=== PATIENT | female | born 1970 | race Caucasian/White ===

== ENCOUNTER 2016-12-31 19:55 | Inpatient (IN) | payer MEDICAID ==
[~2016-12-31] VITALS: Ht 157.5 cm; Wt 80.3 kg
[2016-12-31 20:06] VITALS: BP 147/87; PULSE 103; RESP 18; TEMP 98.2; O2SAT 98
--- NOTE | 2016-12-31 20:30 | NUR ---
Placed in room 01 . Placed on classroom monitor, blood pressure machine and pulse oximeter. To gown for exam. Side rails up. Report given to NURIA Gonzalez.
--- NOTE | 2016-12-31 20:34 | NUR ---
ER at bedside examining patient.
[2016-12-31 20:38] LABS: BILIRUBIN,URINE 2+ (NEGATIVE); BLOOD, URINE 3+ (NEGATIVE); CLARITY/URINE HAZY (CLEAR); COLOR,URINE AMBER (YELLOW); GLUCOSE,URINE NEGATIVE (NEGATIVE); KETONES,URINE 1+ (NEGATIVE); LEUKOCYTE ESTERASE ,URINE NEGATIVE (NEGATIVE); NITRITE, URINE NEGATIVE (NEGATIVE); PROTEIN URINE 2+ (NEGATIVE); UROBILINOGEN,URINE 0.2 (0.2-1.0)
--- NOTE | 2016-12-31 20:39 | NUR ---
Pt. presented to ED with c/o right upper quadrant abd pain 04/09 that radiates to her back. Pt. stated that she recently went AMA from [facility] after being told she has pancreatitis. Pt. stated "Someone was spying on me there, so I had to leave".
[2016-12-31] MEDS ORDERED: NACL 0.9% 1,000 ML IV ONE (20:44)
[2016-12-31] MEDS ORDERED: ONDANSETRON HCL 4 MG/2 ML VIAL IVP ONE (20:45)
[2016-12-31] MEDS ORDERED: HYDROmorphone 1 MG INJ. 1 MG/ML AMPUL IVP ONE (20:45)
[2016-12-31] MEDS ORDERED: DIPHENHYDRAMINE INJ 50 MG/ML VIAL IVP ONE (20:45)
--- NOTE | 2016-12-31 20:46 | NUR ---
# 20 gauge angiocath placed to Right AC. Use of asceptic technique. Opsite placed over site. Blood return noted. Blood for lab drawn from site. Flushed with 10 cc of normal saline. No evidence of infiltration noted. Patient tolerated well.
[2016-12-31 20:51] LABS: BACTERIA,URINE FEW /HPF (None Seen); RBC,URINE 20-50 /HPF (0-3)
[2016-12-31 20:52] LABS: MUCUS,URINE 2+ /LPF (None Seen)
[2016-12-31 21:08] LABS: BASOPHILS # (AUTO) 0.1 K/uL (0.0-0.2); EOSINOPHILS # (AUTO) 0.2 K/uL (0.0-0.4); HEMOGLOBIN 13.9 g/dL (12.0-16.0); RED CELL DISTRIBUTION WIDTH 13.2 % (9.0-15.0)
[2016-12-31 21:17] LABS: EOSINOPHILS % (AUTO) 1.8 % (0.0-4.0); HEMATOCRIT 40.7 % (36-48); LYMPHOCYTES % (AUTO) 22.3 % (20.5-51.5); MEAN CORPUSCULAR HEMOGLOBIN 36 pg (27-31); MEAN CORPUSCULAR HGB CONC 34 % (32-36); MEAN CORPUSCULAR VOLUME 105 fL (79.0-98.0); MONOCYTES # (AUTO) 0.7 K/uL (0.0-1.0); MONOCYTES % (AUTO) 7.1 % (1.7-9.3); NEUTROPHILS # (AUTO) 6.2 K/uL (1.8-7.7); NEUTROPHILS % (AUTO) 67.8 % (40.0-70.0); PLATELET COUNT (AUTO) 194 K/uL (130-430); RED BLOOD CELL COUNT(AUTO) 3.89 MIL/uL (4.2-6.2); WHITE BLOOD COUNT (AUTO) 9.2 K/uL (4.8-10.8)
[2016-12-31 21:22] LABS: INR 0.9 (0.8-1.2); PROTHROMBIN TIME 10.3 SECS (9.5-12.5)
[2016-12-31 21:23] LABS: CALCIUM 8.9 mg/dL (8.4-11.0); CREATININE 0.85 mg/dL (0.55-1.30)
[2016-12-31 21:28] LABS: POTASSIUM 2.8 mmol/L (3.5-5.1)
[2016-12-31 21:30] LABS: ALBUMIN 3.7 g/dL (3.4-4.8); TOTAL BILIRUBIN 1.1 mg/dL (0.0-1.0); TOTAL PROTEIN, SERUM 8.1 g/dL (6.4-8.3)
[2016-12-31] MEDS ORDERED: KCL 20 mEq in 100 mL (PREMIX) 100 ML IV ONE (21:30)
[2016-12-31] MEDS ORDERED: PANTOPRAZOLE SODIUM 40 MG/VIAL (PROTONIX) IVP ONE (21:30)
[2016-12-31] MEDS ORDERED: POTASSIUM CHLORIDE 20 MEQ TAB.PRT.SR PO ONE (21:30)
[2016-12-31] MEDS ORDERED: LISINOPRIL PO (23:02)
[2016-12-31] MEDS ORDERED: ATENOLOL PO (23:02)
[2016-12-31 23:24] LABS: BARBITURATE, URINE NEGATIVE (NEG <=200); BENZODIAZEPINE, URINE POSITIVE (NEG <=150); CANNABINOID, URINE NEGATIVE (NEG <=50); COCAINE, URINE NEGATIVE (NEG <=150); METHAMPHETAMINES SCREEN,URINE NEGATIVE (NEG <=500); OPIATE, URINE POSITIVE (NEG <=100); PHENCYCLIDINE SCREEN,URINE NEGATIVE (NEG <=25); URINE AMPHETAMINE NEGATIVE (NEG <=500); URINE METHADONE NEGATIVE (NEG <=200); URINE OXYCODONE SCREEN NEGATIVE (NEG <=100); URINE PROPOXYPHENE SCREEN NEGATIVE (NEG <=300)
[2016-12-31 23:25] LABS: UR TRICYCLIC ANTIDEPRESSANTS NEGATIVE (NEG <=300)
[2017-01-01] VITALS (8 sets, daily range): BP systolic 139–162; BP diastolic 83–110; PULSE 79–105; RESP 16–19; TEMP 96.9–98.6; O2SAT 92–97
--- NOTE | 2017-01-01 00:05 | NUR ---
ADMISSION NOTES; -Pt arrived from ER dept via a gurney to room 102-B assisting by Fantasma. Eva acute pancreatitis under Riley Yip. Pt is able to transfer from a gurney to bed safely with steady gaits. Pt denies any pain n&V,chest pain,sob,or any acute distress. Vital signs stable 97.4, 10, 104, 90, 151/99,b0aco=95% r/a. Places a telemetry box shows sinus tachycardia. Skin intact. Awais pedis pulses normal and present, no edema noted. Pt stated,''I always have a loose bowel movement every time she pees.'' Abdomen soft & distended, BS present. IV site of rt a/c #20, patent, no s/s any infiltration after flushed w/ NS,valente cdi. Discussed poc, all safety measures, pain mgmt to use call light to inform nurse, pt verbalized understanding. Fall precaution in place. Call light w/in reach. Continue to monitor pt. Addendum: 01/01/17 at 0137 by Ace Sands RN CORRECTION-ADMISSION NOTES TIME IS AT 0048, NOT AT 0005.
--- NOTE | 2017-01-01 00:45 | NUR ---
Pt. transfered to [facility] as per ACLS protocol. Pt. stable for transfer at this time.
--- NOTE | 2017-01-01 00:48 | NUR ---
ADMISSION NOTES; -Pt arrived from ER dept via a gurney to room 102-B assisting by Poli-EMT. Dx acute pancreatitis under Riley Yip. Pt is able to transfer from a gurney to bed safely with steady gaits. Pt denies any pain n&V,chest pain,sob,or any acute distress. Vital signs stable 97.4, 10, 104, 90, 151/99,v6lxc=66% r/a. Places a telemetry box shows sinus tachycardia. Skin intact. Awais pedis pulses normal and present, no edema noted. Pt stated,''I always have a loose bowel movement every time she pees.'' Abdomen soft & distended, BS present. IV site of rt a/c #20, patent, no s/s any infiltration after flushed w/ NS,valente cdi. Discussed poc, all safety measures, pain mgmt to use call light to inform nurse, pt verbalized understanding. Fall precaution in place. Call light w/in reach. Continue to monitor pt.
--- NOTE | 2017-01-01 00:48 | NUR ---
ADMISSION NOTE Received patient from ER via charles, received report from Carlos QUIÑONES. Patient admitted with diagnosis of acute pancreatitis. Patient oriented to hospital routine, call light, toileting and safety-patient verbalized understanding.
--- NOTE | 2017-01-01 00:51 | NUR ---
Bedside report given to receiving RN Renuka.
--- NOTE | 2017-01-01 00:56 | NUR ---
CONSULTATION PAGED REASON FOR CONSULTATION:ACUTE PANCREATITIS WAS CONSULT CALLED?Y PERSON WHO WAS NOTIFIED:[facility] CONSULTING PHYSICIAN:ELIZABETH LOPES ([facility] INTENSIVE CARE NURSE) DISTRICT COURT ADMINISTRATOR SPECIALTY:GI DISTRICT [facility] ADMINISTRATOR PHONE NUMBER:[phone]
[2017-01-01] MEDS: KCL 20 mEq in NS 1000 mL 1,000 ML IV SCH ×4 (01:46→20:56)
[2017-01-01] MEDS: HYDROmorphone 1 MG INJ. 1 MG/ML AMPUL IVP PRN ×5 (01:55→20:45)
--- NOTE | 2017-01-01 01:55 | NUR ---
ROUNDS;PAIN MEDICATION ADMINISTERED -Pt is c/o sharp abdominal pain 9 out 10, gave Dilaudid 1mg IVP. See EMAR for pain reassessment. IV site of rt a/c #20, patent, no s/s any infiltration after flushed w/ NS,drsg cdi. Fall precaution in place. Call light w/in reach. Continue to monitor pt.
[2017-01-01] MEDS: ONDANSETRON HCL 4 MG/2 ML VIAL IVP PRN ×4 (02:01→20:48)
--- NOTE | 2017-01-01 02:01 | NUR ---
NAUSEA -Pt is c/o just nausea, gave Zofran 4mg IVP. Call light w/in reach. Continue to monitor pt.
--- NOTE | 2017-01-01 04:19 | NUR ---
ROUNDS; -Pt is resting. NO s/s any acute distress noted. IV site of rt a/c #20, patent, no s/s any infiltration after flushed w/ NS,drsg cdi. Fall precaution in place. Call light w/in reach. Continue to monitor pt.
--- NOTE | 2017-01-01 05:59 | NUR ---
ROUNDS;PAIN AND N/V MEDICATIONS ADMINISTERED -Pt is c/o sharp and throbbing abdominal pain 10 out 10, gave Dilaudid 1mg IVP and Zofran 4mg IVP. See EMAR for pain reassessment. IV site of rt a/c #20, patent, no s/s any infiltration after flushed w/ NS,drsg cdi. Fall precaution in place. Call light w/in reach. Continue to monitor pt.
[2017-01-01] MEDS ORDERED: ACETAMINOPHEN 325 MG TABLET PO PRN (07:15)
--- NOTE | 2017-01-01 07:18 | NUR ---
CLOSING NOTES; -Pt awakes, resting in bed. Pt denies any pain,N&V,or any acute distress. IV site of rt f/a patent, no s/s any infiltration noted. IVF NS + 20 MEQ KCL @ 125ml/hr. Fall precaution in place. Call light w/in reach. Endorsed to Pola to continue care.
--- NOTE | 2017-01-01 07:20 | NUR ---
INITIAL NOTE RECEIVED PATIENT FROM PLANE CAPTAIN NURSE, PATIENT IS RESTING IN BED, PATIENT IS ALERT AND ORIENTED X 4, ASSESSMENT COMPLETE, PATIENT STATED SHE IS NOT IN ANY PAIN, SHE STATED THAT THE PRN PAIN MEDICATION THAT WAS GIVEN THIS MORNING HELPED PAIN, PATIENT HAS A IV IN RIGHT FOREARM WITH IV FLUIDS RUNNING, NO SIGNS OF INFILTRATION NOTED, INSTRUCTED PATIENT TO USE CALL BERGER IF ASSISTANCE IS NEEDED, PATIENT VERBALIZED UNDERSTANDING, CALL BERGER LEFT NEXT TO PATIENT, BED IN LOWEST POSITION, TWO SIDE RAILS UP, FALL PRECAUTIONS IN PLACE, WILL CONTINUE TO MONITOR PATIENT.
[2017-01-01 07:44] LABS: BASOPHILS # (AUTO) 0.1 K/uL (0.0-0.2); BASOPHILS % (AUTO) 1.2 % (0.0-2.0); EOSINOPHILS # (AUTO) 0.1 K/uL (0.0-0.4); EOSINOPHILS % (AUTO) 1.8 % (0.0-4.0); HEMATOCRIT 33.4 % (36-48); HEMOGLOBIN 11.5 g/dL (12.0-16.0); LYMPHOCYTES # (AUTO) 2.6 K/uL (1.0-5.5); LYMPHOCYTES % (AUTO) 31.5 % (20.5-51.5); MEAN CORPUSCULAR HEMOGLOBIN 36 pg (27-31); MEAN CORPUSCULAR HGB CONC 34 % (32-36); MEAN CORPUSCULAR VOLUME 105 fL (79.0-98.0); MONOCYTES # (AUTO) 0.6 K/uL (0.0-1.0); MONOCYTES % (AUTO) 7.7 % (1.7-9.3); NEUTROPHILS # (AUTO) 4.8 K/uL (1.8-7.7); NEUTROPHILS % (AUTO) 57.8 % (40.0-70.0); PLATELET COUNT (AUTO) 154 K/uL (130-430); RED BLOOD CELL COUNT(AUTO) 3.18 MIL/uL (4.2-6.2); RED CELL DISTRIBUTION WIDTH 13.3 % (9.0-15.0); WHITE BLOOD COUNT (AUTO) 8.2 K/uL (4.8-10.8)
[2017-01-01] MEDS: PANTOPRAZOLE SODIUM 40 MG/VIAL (PROTONIX) IVP SCH (08:04)
--- NOTE | 2017-01-01 08:07 | NUR ---
MEDICATIONS PATIENT RECEIVED MORNING MEDICATION, REEDUCATED PATIENT ON REASON FOR MEDICATION, PATIENT VERBALIZED UNDERSTANDING, NO OTHER NEEDS AT THIS TIME, CALL BERGER LEFT WITHIN REACH OF PATIENT'S HAND, FALL PRECAUTIONS IN PLACE, WILL CONTINUE TO MONITOR.
[2017-01-01 08:17] LABS: ALBUMIN 3.1 g/dL (3.4-4.8); CALCIUM 7.8 mg/dL (8.4-11.0); CREATININE 0.57 mg/dL (0.55-1.30); TOTAL PROTEIN, SERUM 6.6 g/dL (6.4-8.3)
--- NOTE | 2017-01-01 09:25 | NUR ---
CALLED ATTENDING , DR NEAL, RE: LOW K LEVEL. SPOKE TO JOSE
--- NOTE | 2017-01-01 09:28 | NUR ---
RN ROUNDS PATIENT IS CURRENTLY RESTING IN BED, NO SIGNS OF DISTRESS, PATIENT HAS NO COMPLAINTS OF PAIN AT THIS TIME, WILL CONTINUE TO MONITOR PATIENT, FALL PRECAUTIONS PLACE.
[2017-01-01] MEDS ORDERED: POTASSIUM CHLORIDE 30 MEQ in NS 250 ML IV ONE (10:00)
[2017-01-01] MEDS ORDERED: POTASSIUM CHLORIDE 10 MEQ TAB.PRT.SR PO ONE (10:00)
[2017-01-01] MEDS ORDERED: ATENOLOL 25 MG TABLET(TENORMIN) PO ONE (10:30)
--- NOTE | 2017-01-01 11:22 | NUR ---
RN ROUNDS PATIENT IS CURRENTLY RESTING IN BED, NO COMPLAINTS OF PAIN OR DISCOMFORT AT THIS TIME, PRN MEDICATION THAT WAS GIVEN IS HELPING WITH ABDOMINAL PAIN, NO OTHER NEEDS AT THIS TIME, WILL CONTINUE TO MONITOR PATIENT, FALL PRECAUTIONS IN PLACE.
[2017-01-01] MEDS ORDERED: LEVO1TAB7 PO (13:12)
[2017-01-01] MEDS ORDERED: ATEN-41 PO (13:12)
[2017-01-01] MEDS ORDERED: LISI-600 PO (13:12)
--- NOTE | 2017-01-01 13:14 | NUR ---
RN ROUNDS PATIENT IS CURRENTLY SITTING UP IN BED, WATCHING TV, NO COMPLAINTS OF PAIN OR DISCOMFORT, FALL PRECAUTIONS IN PLACE, NO OTHER NEEDS AT THIS TIME WILL CONTINUE TO MONITOR
[2017-01-01] MEDS ORDERED: ETHINYL ESTRADIOL PO SCH (13:45)
[2017-01-01] MEDS ORDERED: cloNIDine HCL 0.1 MG TABLET PO PRN (13:45)
[2017-01-01] MEDS ORDERED: LISINOPRIL 20 MG TABLET PO ONE (13:45)
[2017-01-01] MEDS ORDERED: LEVONORGESTREL PO SCH (13:45)
--- NOTE | 2017-01-01 14:27 | NUR ---
RN ROUNDS PATIENT IS SITTING UP IN BED TALKING TO FAMILY MEMBER, BLOOD PRESSURE WAS CHECKED AND SCHEDULED MEDICATION WAS GIVEN, NO OTHER NEEDS AT THIS TIME, WILL CONTINUE TO MONITOR PATIENT, FALL PRECAUTIONS IN PLACE.
[2017-01-01] MEDS ORDERED: ETHINYL ESTRADIOL PO ONE (14:30)
[2017-01-01] MEDS ORDERED: LEVONORGESTREL PO ONE (14:30)
[2017-01-01] MEDS: chlordiazePOXIDE HCL 25 MG CAPSULE PO SCH ×2 (16:09→20:53)
--- NOTE | 2017-01-01 17:00 | NUR ---
RN ROUNDS PATIENT IS CURRENTLY RESTING IN BED WATCHING TV, NO OTHER NEEDS AT THIS TIME, FALL PRECAUTIONS IN PLACE, WILL CONTINUE TO MONITOR .
--- NOTE | 2017-01-01 18:31 | NUR ---
CLOSING NOTE PATIENT IS RESTING IN BED, NO SIGNS OF DISTRESS NOTED, ALL NEEDS MET, WILL ENDORSE PATIENT TO BUILDING SURVEYOR NURSE, CALL BERGER LEFT NEXT TO PATIENT'S HAND, BED IN LOWEST POSITION, TWO SIDE RAILS UP, FALL PRECAUTIONS IN PLACE
--- NOTE | 2017-01-01 19:20 | NUR ---
initial nursing notes: Patient awake in bed. Patient has IV fluid infusing on the right AC IV access. Patient denies of having pain.
--- NOTE | 2017-01-01 19:52 | NUR ---
PT TRANSFERRED Report given to [facility] by NURIA Norman at 1730. Transfer packet with Transfer Orders and Medication Reconciliation form given to LÁZARO Alonso with report by NURIA Norman. Exitcare provided. [facility] ID band removed, replaced with ID band with pt's name and . Patient has a LUE PICC line double lumen which are intact. Latest blood sugar result, 103. All belongings sent with patient. Patient left floor via gurney escorted by EMT in no distress. Addendum: 01/02/17 at 6469 by Aris Negrete RN Note was accidentally entered in error.
--- NOTE | 2017-01-01 21:20 | NUR ---
nursing rounds: Patient stated that the pain medication was effective in treating her back ache.
--- NOTE | 2017-01-01 22:27 | NUR ---
PAGED PAGED AUGUSTINE MALHOTRA AT [phone] SPOKE WITH JESSICA.
--- NOTE | 2017-01-01 23:20 | NUR ---
nursing rounds: Patient requested for heating pad for her back ache, Dr. Ojeda was notified. made a telephone order to go ahead and apply heating pad to patient's affected area.
[2017-01-02] VITALS (7 sets, daily range): BP systolic 108–157; BP diastolic 64–107; PULSE 69–91; RESP 16–18; TEMP 97–98.1; O2SAT 94–98
--- NOTE | 2017-01-02 01:20 | NUR ---
nursing rounds: Patient asleep in bed. Patient has no shortness of breath.
--- NOTE | 2017-01-02 03:20 | NUR ---
nursing rounds: Patient sleeping in bed. Patient's breathing pattern is regular and unlabored.
--- NOTE | 2017-01-02 05:20 | NUR ---
nursing rounds: Patient calmly resting in bed. Call light within patient's reach.
[2017-01-02] MEDS: KCL 20 mEq in NS 1000 mL 1,000 ML IV SCH ×2 (07:00→11:44)
[2017-01-02 07:30] LABS: ALBUMIN 2.5 g/dL (3.4-4.8); BILIRUBIN,DIRECT 0.4 mg/dL (0.0-0.3); POTASSIUM 3.1 mmol/L (3.5-5.1); TOTAL BILIRUBIN 4.2 mg/dL (0.0-1.0)
--- NOTE | 2017-01-02 07:44 | NUR ---
closing nursing notes: Patient is awake, alert and oriented X 4. Patient is in no acute respiratory distress. No episodes of fall and no injuries throughout the automatic lathe setter. Provided nursing report to incoming morning shift nurse, Mary Shah RN, at patient's bedside.
--- NOTE | 2017-01-02 08:00 | NUR ---
AM NOTES IN BED AWAKE, ALERT AND ORIENTED. AMBULATE TO THE BATHROOM WITH STEADY GAIT. IVF INFUSING WELL. ON CLEAR LIQUID DIET. DENIES ANY N/V. COMPLAIN OF MLD PAIN ON HER BACK. CALL LIGHT I REACH. ENC. TO CALL FOR HELP NEEDED. WILL MONITOR.
[2017-01-02] MEDS: HYDROmorphone 1 MG INJ. 1 MG/ML AMPUL IVP PRN ×4 (08:58→21:56)
[2017-01-02] MEDS ORDERED: ATENOLOL 25 MG TABLET(TENORMIN) PO SCH (09:00)
[2017-01-02] MEDS: LISINOPRIL 20 MG TABLET PO SCH (09:02)
[2017-01-02] MEDS: chlordiazePOXIDE HCL 25 MG CAPSULE PO SCH ×3 (09:03→20:40)
[2017-01-02] MEDS: ATENOLOL 25 MG TABLET(TENORMIN) PO SCH (09:03)
[2017-01-02] MEDS: PANTOPRAZOLE SODIUM 40 MG/VIAL (PROTONIX) IVP SCH (09:03)
[2017-01-02] MEDS: LEVONORGESTREL PO SCH (09:04)
[2017-01-02] MEDS: ETHINYL ESTRADIOL PO SCH (09:04)
[2017-01-02 09:07] LABS: CALCIUM 7.7 mg/dL (8.4-11.0); CREATININE 0.56 mg/dL (0.55-1.30)
[2017-01-02 09:08] LABS: TOTAL PROTEIN, SERUM 6.5 g/dL (6.4-8.3)
--- NOTE | 2017-01-02 10:00 | NUR ---
ROUNDS RESTING IN BED, PAIN BETTER. NO DISTRESS NOTED. WILL MONITOR.
--- NOTE | 2017-01-02 10:27 | NUR ---
CALLED DR. NEAL RE: K RESULTS.
[2017-01-02] MEDS ORDERED: KCL IV ONE (11:00)
[2017-01-02] MEDS ORDERED: LIDOCAINE JECT IV ONE (11:00)
[2017-01-02] MEDS ORDERED: NS IV ONE (11:00)
[2017-01-02] MEDS ORDERED: POTASSIUM CHLORIDE 40 MEQ, LIDOCAINE JECT 2% PF 100 MG 75 MG in NS 250 ML IV ONE (12:30)
--- NOTE | 2017-01-02 12:30 | NUR ---
NOTES RESTING IN BED, NO COMPLAINTS. STABLE
[2017-01-02] MEDS ORDERED: POTASSIUM CHLORIDE 20 MEQ/PKT PACKET PO ONE (13:30)
--- NOTE | 2017-01-02 18:20 | NUR ---
NOTES IN BED AWAKE, PAIN BETTER. TOLERATING FULL LIQUID. K DARREN STILL INFUSING. NO DISTRESS NOTED. SEEN BY DR. ABERNATHY AND DR. NEAL. ALL NEEDS MEET. WILL ENDORSE
--- NOTE | 2017-01-02 19:20 | NUR ---
initial nursing notes: Patient awake in bed. Patient watching television. Patient has IV fluid infusing on the right AC IV access. Patient denies of having pain.
--- NOTE | 2017-01-02 21:20 | NUR ---
nursing rounds: Patient is ambulatory to the bathroom with a steady gait.
--- NOTE | 2017-01-02 22:30 | NUR ---
nursing rounds: Patient stated that the pain medication was effective in treating her back pain.
--- NOTE | 2017-01-03 00:30 | NUR ---
nursing rounds: Patient asleep in bed. Patient has no shortness of breath.
--- NOTE | 2017-01-03 02:30 | NUR ---
nursing rounds: Patient sleeping in bed. Patient's breathing pattern is regular and unlabored.
[2017-01-03] MEDS: HYDROmorphone 1 MG INJ. 1 MG/ML AMPUL IM PRN ×2 (03:46→08:32)
[2017-01-03] MEDS: KCL 20 mEq in NS 1000 mL 1,000 ML IV SCH ×2 (03:46→12:28)
[2017-01-03 04:08] VITALS: BP 147/89; PULSE 81; RESP 17; TEMP 97.2; O2SAT 97
--- NOTE | 2017-01-03 04:30 | NUR ---
nursing rounds: Patient received another dose of pain medication. Patient stated that the pain medication was effective.
--- NOTE | 2017-01-03 06:05 | NUR ---
nursing rounds: Patient calmly resting in bed. Call light within patient's reach.
[2017-01-03 07:30] LABS: BASOPHILS % (AUTO) 0.8 % (0.0-2.0); EOSINOPHILS # (AUTO) 0.1 K/uL (0.0-0.4); EOSINOPHILS % (AUTO) 2.4 % (0.0-4.0); HEMATOCRIT 33.5 % (36-48); HEMOGLOBIN 11.6 g/dL (12.0-16.0); LYMPHOCYTES % (AUTO) 34.1 % (20.5-51.5); MEAN CORPUSCULAR HEMOGLOBIN 36 pg (27-31); MEAN CORPUSCULAR HGB CONC 35 % (32-36); MEAN CORPUSCULAR VOLUME 106 fL (79.0-98.0); MONOCYTES # (AUTO) 0.6 K/uL (0.0-1.0); MONOCYTES % (AUTO) 10.1 % (1.7-9.3); NEUTROPHILS # (AUTO) 3.2 K/uL (1.8-7.7); NEUTROPHILS % (AUTO) 52.6 % (40.0-70.0); PLATELET COUNT (AUTO) 179 K/uL (130-430); RED BLOOD CELL COUNT(AUTO) 3.17 MIL/uL (4.2-6.2); RED CELL DISTRIBUTION WIDTH 12.6 % (9.0-15.0); WHITE BLOOD COUNT (AUTO) 5.9 K/uL (4.8-10.8)
--- NOTE | 2017-01-03 07:30 | NUR ---
INITIAL NOTE RECEIVED PATIENT FROM PICKLING TANK OPERATOR NURSE, PATIENT IS CURRENTLY RESTING IN BED, ASSESSMENT COMPLETE, PATIENT IS ALERT AND ORIENTED X 4, NO SIGNS OF DISTRESS NOTED, PATIENT HAS A IV ON RIGHT FOREARM WITH FLUIDS INFUSING, INSTRUCTED PATIENT ON USE OF CALL BERGER, PATIENT VERBALIZED UNDERSTANDING, CALL BERGER LEFT NEXT TO PATIENT, BED IN LOWEST POSITION, SIDE RAILS UP, FALL PRECAUTIONS IN PLACE, WILL CONTINUE TO MONITOR PATIENT.
--- NOTE | 2017-01-03 07:33 | NUR ---
closing nursing notes: Patient is awake, alert and oriented X 4. Patient is in no acute respiratory distress. No episodes of fall and no injuries throughout the night clerk auditor. Provided nursing report to incoming morning shift nurse, NURIA Escalona, at patient's bedside.
[2017-01-03 08:00] VITALS: BP 157/110; PULSE 79; RESP 18; TEMP 97.3; O2SAT 94
[2017-01-03 08:18] LABS: ALBUMIN 2.8 g/dL (3.4-4.8); BILIRUBIN,DIRECT 0.3 mg/dL (0.0-0.3); CALCIUM 8.2 mg/dL (8.4-11.0); CREATININE 0.63 mg/dL (0.55-1.30); POTASSIUM 3.5 mmol/L (3.5-5.1); TOTAL BILIRUBIN 0.6 mg/dL (0.0-1.0); TOTAL PROTEIN, SERUM 6.4 g/dL (6.4-8.3)
[2017-01-03] MEDS: PANTOPRAZOLE SODIUM 40 MG/VIAL (PROTONIX) IVP SCH (08:29)
[2017-01-03] MEDS: chlordiazePOXIDE HCL 25 MG CAPSULE PO SCH (08:29)
[2017-01-03] MEDS: LISINOPRIL 20 MG TABLET PO SCH (08:30)
[2017-01-03] MEDS: ATENOLOL 25 MG TABLET(TENORMIN) PO SCH (08:30)
[2017-01-03] MEDS: ETHINYL ESTRADIOL PO SCH (08:31)
[2017-01-03] MEDS: LEVONORGESTREL PO SCH (08:31)
--- NOTE | 2017-01-03 08:33 | NUR ---
MEDICATIONS PATIENT RECEIVED MORNING MEDICATION, EDUCATED PATIENT ON POTENTIAL SIDE EFFECTS, PATIENT VERBALIZED UNDERSTANDING, PATIENT STATED SHE WAS IN PAIN, PRN PAIN MEDICATION GIVEN, WILL REASSESS EFFECTIVENESS, NO OTHER NEEDS AT THIS TIME, FALL PRECAUTIONS IN PLACE, WILL CONTINUE TO MONITOR
--- NOTE | 2017-01-03 10:26 | NUR ---
RN ROUNDS PATIENT IS CURRENTLY RESTING IN BED, NO SIGN OF DISTRESS NOTED, PATIENT HAS NO COMPLAINTS OF PAIN AT THIS TIME, NO OTHER NEEDS AT THIS TIME, CALL BERGER LEFT NEXT TO PATIENT'S HAND, FALL PRECAUTIONS IN PLACE, WILL CONTINUE TO MONITOR PATIENT.
[2017-01-03 11:50] VITALS: BP 149/91; PULSE 78; RESP 16; TEMP 98.8; O2SAT 99
--- NOTE | 2017-01-03 12:21 | NUR ---
Paged Dr Ojeda [phone], chasity Vogt
--- NOTE | 2017-01-03 12:29 | NUR ---
rn rounds patient is resting in bed, no signs of distress noted, Dr. Ojeda is making rounds and d/c patient's iv and iv fluids, no other needs at this time, will continue to monitor patient, fall precautions in place.
[2017-01-03] MEDS ORDERED: PRO40 PO (12:51)
[2017-01-03] MEDS ORDERED: LIB10 PO (12:51)
[2017-01-03] MEDS ORDERED: HYDR-1189 PO (12:52)
[2017-01-03 13:00] VITALS: BP 149/91; PULSE 78; RESP 18; TEMP 98.8; O2SAT 99
--- NOTE | 2017-01-03 13:25 | NUR ---
D/C Patient Patient given medication reconciliation form and D/C instructions. Exit Care provided. Patient verbalized understanding. MD discussed with patient the results and treatment provided. Ambulatory with steady gait for discharge to home. Patient in stable condition, ID band removed. IV catheter removed, intact and dressing applied, no active bleeding. Rx of librium, norco given. Patient educated on pain management. All belongings sent with patient.
--- NOTE | 2017-01-26 23:20 | NUR ---
nursing rounds: Patient asleep in bed. Patient has no shortness of breath. Addendum: 01/27/17 at 0010 by Aris Negrete RN error in documentation.
--- NOTE | 2017-02-14 01:20 | NUR ---
nursing rounds: Patient asleep in bed. Patient has no shortness of breath.
== END 2017-01-03 13:25 | disposition home or self-care (01) | DRG 282 ==
LOC: SED 19:55 → STU 01-01 00:17 → SMU 01-01 14:24
PROVIDERS: ADMIT Internal Medicine; ATTEND Internal Medicine
DX: K85.90 Acute pancreatitis without necrosis or infection, unspecified (principal); K75.9 Inflammatory liver disease, unspecified; I10 Essential (primary) hypertension; E87.6 Hypokalemia; F10.20 Alcohol dependence, uncomplicated; Z90.49 Acquired absence of other specified parts of digestive tract; Z79.899 Other long term (current) drug therapy
CPT/HCPCS: 36415; 76700-TC; 80048; 80053; 80076; 80307; 81000-TC; 81025; 82150-TC; 83690-TC; 83735-TC; 84478-TC; 85025; 85610-TC; 85730-TC; 87040-TC; 87081; 96361; 96365; 96366; 96375; 99285; C9113; G0482; J1170; J1200; J2405; J3480; J7030; J7050